=== PATIENT | male | born 1975 | race Caucasian/White ===

== ENCOUNTER 2017-03-31 20:24 | Inpatient (IN) | payer MEDICAID ==
[~2017-03-31] VITALS: Ht 177.8 cm; Wt 95.0 kg
[2017-04-01] MEDS ORDERED: ONDANSETRON 4 MG INJ IV STA (00:57)
[2017-04-01] MEDS ORDERED: morphine 4 MG/ML VIAL IV STA (00:57)
[2017-04-01] MEDS ORDERED: SOD CHLORIDE 0.9% 1,000 ML IV STA (00:57)
--- NOTE | 2017-04-01 00:57 | ERD ---
ER Documentation Chief Complaint Date/Time DATE: 04/01/17 TIME: 00:55 Chief Complaint RUQ pain since yesterday that worsens with deep breathing HPI right upper Quadrant pain worse with inspiration, , fever and diarrhea, denies n /v/ x 2 days ROS All systems reviewed and are negative except as per history of present illness. Physical Exam Vitals Vital Signs Date Time Temp Pulse Resp B/P Pulse Ox O2 Delivery O2 Flow Rate FiO2 03/31/17 20:43 100.0 95 20 116/74 97 Physical Exam Const: [] Head: Atraumatic Eyes: Normal Conjunctiva ENT: Normal External Ears, Nose and Mouth. Neck: Full range of motion..~ No meningismus. Resp: Clear to auscultation bilaterally Cardio: Regular rate and rhythm, no murmurs Abd: Soft, non tender, non distended. Normal bowel sounds Skin: No petechiae or rashes Back: No midline or flank tenderness Ext: No cyanosis, or edema Neur: Awake and alert Psych: Normal Mood and Affect Result Diagram: 04/01/1711404/01/17 011 Results 24 hrs Laboratory Tests Test 04/01/17 01:10 04/01/17 01:15 Urine Color URIEL Urine Clarity SLIGHTLY CLOUDY Urine pH 5.0 Urine Specific [place] 1.034 Urine Ketones TRACEmg/dL Urine Nitrite NEGATIVEmg/dL Urine Bilirubin 1+mg/dL Urine Urobilinogen 1+mg/dL Urine Leukocyte Esterase NEGATIVELeu/ul Urine Microscopic RBC 1/HPF Urine Microscopic WBC 3/HPF Urine Squamous Epithelial Cells FEW/HPF Urine Mucus MANY/HPF Urine Hemoglobin NEGATIVEmg/dL Urine Glucose NEGATIVEmg/dL Urine Total Protein 2+mg/dl White Blood Count 17.810^3/ul Red Blood Count 4.7110^6/ul Hemoglobin 14.6g/dl Hematocrit 42.4% Mean Corpuscular Volume 90.0fl Mean Corpuscular Hemoglobin 31.0pg Mean Corpuscular Hemoglobin Concent 34.4g/dl Red Cell Distribution Width 13.2% Platelet Count 45413^3/UL Mean Platelet Volume 10.3fl Neutrophils % 84.0% Lymphocytes % 8.4% Monocytes % 6.7% Eosinophils % 0.1% Basophils % 0.2% Nucleated Red Blood Cells % 0.0/100WBC Neutrophils # (Manual) 14.910^3/ul Lymphocytes # 1.510^3/ul Monocytes # 1.210^3/ul Eosinophils # 0.010^3/ul Basophils # 0.010^3/ul Nucleated Red Blood Cells # 0.010^3/ul Sodium Level 136mmol/L Potassium Level 3.6mmol/L Chloride Level 99mmol/L Carbon Dioxide Level 28mmol/L Anion Gap 13 Blood Urea Nitrogen 20mg/dl Creatinine 1.01mg/dl Glucose Level 113mg/dl Calcium Level 9.2mg/dl Total Bilirubin 1.9mg/dl Direct Bilirubin 0.00mg/dl Indirect Bilirubin 1.9mg/dl Aspartate Amino Transf (AST/SGOT) 90IU/L Alanine Aminotransferase (ALT/SGPT) 86IU/L Alkaline Phosphatase 77IU/L Total Protein 7.3g/dl Albumin 4.1g/dl Globulin 3.20g/dl Albumin/Globulin Ratio 1.28 Lipase 65U/L Current Medications Medications (Trade) Dose Ordered Sig/Juan David Route PRN Reason Start Time Stop Time Status Last Admin Dose Admin Sodium Chloride (NS) 1,000 ml @ 1,000 mls/hr Q1H STAT IV 04/01/17 00:57 04/01/17 01:56 DC 04/01/17 01:24 Morphine Sulfate (morphine) 4 mg ONCE STAT IV 04/01/17 00:57 04/01/17 01:01 DC 04/01/17 01:24 Ondansetron HCl (Zofran Inj) 4 mg ONCE STAT IV 04/01/17 00:57 04/01/17 01:01 DC 04/01/17 01:23 Pantoprazole (Protonix Iv) 40 mg ONCE ONCE IV 04/01/17 01:00 04/01/17 01:01 DC 04/01/17 01:24 Interpretation text CBC shows no evidence of hemorrhage WBCs elevated at 17.8. Chemistry shows no evidence of significant electrolyte abnormalities or renal insufficiency Liver function tests shows evidence of biliary and hepatic dysfunction Lipase shows no evidence of acute pancreatitis Procedures/MDM PROCEDURE: Abdominal ultrasound, limited. CLINICAL INDICATION: Abdominal pain. TECHNIQUE: Multiple real-time images were acquired of the patient's right upper abdomen utilizing a high resolution transducer. COMPARISON: None FINDINGS: The liver demonstrates increased echogenicity and size measuring 20.7 cm. There is no focal mass or intrahepatic biliary ductal dilatation. The portal vein is patent. The gallbladder is not distended. Multiple echogenic gallstones are identified. There is no pericholecystic fluid. There is mild gallbladder wall thickening measuring 4.3 mm. The common bile duct measures 3.9 mm in maximal dimension. The pancreas is obscured by overlying bowel gas. No free fluid is identified. The right kidney is normal size and echogenicity measuring 11.3 cm. There is no focal renal mass or echogenic calculus identified. There is no obstructive uropathy. IMPRESSION: Cholelithiasis with mild gallbladder wall thickening. Enlarged liver with fatty infiltration. Pancreas obscured by overlying bowel gas. Electronically viewed and signed by .Horacio Barrientos MD, on 04/01/2017 02:27 41-year-old male patient presents to emergency department today for evaluation of right upper quadrant pain. Pain has been symptomatic for 2 days with worse pain today. Patient reports pain as severe, denies history of cholecystitis, denies nausea vomiting reports diarrhea today. Patient eats a diet high in animal products. High in fat. Denies alcohol. Patient symptoms and physical exam are highly suspicious for cholecystitis. Diagnostic testing ordered, abnormal laboratory tests with elevated WBCs at 17.8. LFTs are elevated ' Alk phos is normal, lipase is normal. Urinalysis is negative for evidence of leukocytosis, microscopic hematuria, or nitrates. A bladder ultrasound ordered with radiology interpretation as cholelithiasis with mild gallbladder wall thickening. Enlarged liver with fatty infiltration. Pancreas obscured by overlying bowel and gas.. Patient's received 1 L of normal saline, 4 mg of IV morphine, 4 mg of IV Zofran, and 40 mg of IV Protonix. Patient reassessed reports pain has improved and that he feels overall better than when he came in. This case discussed with supervising physician Dr. Dawkins. Patient will be moved over to main emergency room, all care will be transferred to Dr. Dawkins this time. Departure Diagnosis: Primary Impression: Cholelithiasis Cholelithiasis location: gallbladder Cholecystitis presence: with cholecystitis Cholecystitis acuity: unspecified acuity Biliary obstruction: without biliary obstruction Qualified Code: K80.00 - Calculus of gallbladder with cholecystitis without biliary obstruction, unspecified cholecystitis acuity Condition: Stable WESTLEY BIRMING[place]AM Apr 01, 2017 00:57
[2017-04-01] MEDS ORDERED: PANTOPRAZOLE 40 MG INJ IV ONE (01:00)
[2017-04-01 01:46] LABS: BASOPHILS % 0.2 % (0.0-2.0); EOSINOPHILS % 0.1 % (0.0-7.0); HEMATOCRIT 42.4 % (42.0-52.0); HEMOGLOBIN 14.6 g/dl (14.0-18.0); LYMPHOCYTES # 1.5 10^3/ul (0.8-2.9); LYMPHOCYTES % 8.4 % (15.0-51.0); MEAN CORPUSCULAR HGB CONC 34.4 g/dl (32.0-37.0); MEAN PLATELET VOLUME 10.3 fl (7.4-10.4); MONOCYTE # 1.2 10^3/ul (0.3-0.9); MONOCYTES % 6.7 % (0.0-11.0); PLATELET COUNT 301 10^3/UL (140-415); RED BLOOD COUNT 4.71 10^6/ul (4.70-6.10); RED CELL DISTRIBUTION WIDTH 13.2 % (11.5-14.5); WHITE BLOOD COUNT 17.8 10^3/ul (4.8-10.8)
[2017-04-01 01:50] LABS: ADD UMIC YES; UR ASCORBIC ACID NEGATIVE (NEGATIVE); UR BILIRUBIN (Dip) 1+ mg/dL (NEGATIVE); UR BLOOD (Dip) NEGATIVE (NEGATIVE); UR CLARITY SLIGHTLY CLOUDY (CLEAR); UR COLOR AMBER (YELLOW); UR GLUCOSE (Dip) NEGATIVE (NEGATIVE); UR KETONES (Dip) TRACE mg/dL (NEGATIVE); UR LEUKOCYTE ESTERASE (Dip) NEGATIVE Leu/ul (NEGATIVE); UR MUCUS MANY /HPF (NONE SEEN); UR NITRITE (Dip) NEGATIVE (NEGATIVE); UR RBC 1 /HPF (0-5); UR SPECIFIC GRAVITY (Dip) 1.034 (1.003-1.030); UR SQUAMOUS EPITHELIAL CELL FEW /HPF (FEW); UR TOTAL PROTEIN (Dip) 2+ mg/dl (NEGATIVE); UR UROBILINOGEN (Dip) 1+ mg/dL (NEGATIVE)
[2017-04-01 02:01] LABS: ALBUMIN 4.1 g/dl (3.3-4.9); ALBUMIN/GLOBULIN RATIO 1.28; BILIRUBIN,INDIRECT 1.9 mg/dl (0-1.1); BILIRUBIN,TOTAL 1.9 mg/dl (0.2-1.3); CALCIUM 9.2 mg/dl (8.4-10.2); CREATININE 1.01 mg/dl (0.61-1.24); POTASSIUM 3.6 mmol/L (3.5-5.1); TOTAL PROTEIN 7.3 g/dl (6.1-8.1)
--- NOTE | 2017-04-01 02:27 | RADRPT ---
PROCEDURE: Abdominal ultrasound, limited. CLINICAL INDICATION: Abdominal pain. TECHNIQUE: Multiple real-time images were acquired of the patient's right upper abdomen utilizing a high resolution transducer. COMPARISON: None FINDINGS: The liver demonstrates increased echogenicity and size measuring 20.7 cm. There is no focal mass or intrahepatic biliary ductal dilatation. The portal vein is patent. The gallbladder is not distend ed. Multiple echogenic gallstones are identified. There is no pericholecystic fluid. There is mild gallbladder wall thickening measuring 4.3 mm. The common bile duct measures 3.9 mm in maximal dime nsion. The pancreas is obscured by overlying bowel gas. No free fluid is identified. The right kidney is normal size and echogenicity measuring 11.3 cm. There is no focal renal mass or echogenic calculus identified. There is no obstructive uropathy. IMPRESSION: Cholelithiasis with mild gallbladder wall thickening. Enlarged liver with fatty infiltration. Pancreas obscured by overlying bowel gas. .Horacio Barrientos MD, Date Time Electronically viewed and signed by .Horacio Barrientos MD, MD on 04/01/2017 02:27 .T/
[2017-04-01] MEDS ORDERED: ACET-141 PO (05:22)
[2017-04-01] MEDS ORDERED: SOD CHLORIDE 0.9% 1,000 ML IV SCH (06:27)
[2017-04-01] MEDS ORDERED: BISACODYL (EC) 5 MG TAB PO PRN (06:30)
[2017-04-01] MEDS ORDERED: DOCUSATE SODIUM 100 MG CAP PO PRN (06:30)
[2017-04-01] MEDS ORDERED: ONDANSETRON 4 MG INJ IV PRN (06:30)
[2017-04-01] MEDS ORDERED: NACL 0.9% 3 ML SYG IV SCH (06:30)
--- NOTE | 2017-04-01 06:32 | HP ---
Date/Time of Note Date/Time of Note DATE: 04/01/17 TIME: 06:24 Assessment/Plan VTE Prophylaxis VTE Prophylaxis Intervention: SCD's Assessment/Plan Chief Complaint/Hosp Course This is a 41-year-old male being admitted to the [facility] floor for: #1 symptomatic cholelithiasis: There is cholelithiasis and gallbladder wall thickening identified on the gallbladder ultrasound. There is no signs of acute cholecystitis. Patient denies any fevers. There is an elevated white blood cell count of 17 which could be reactive however we will continue to monitor any signs of infection. General surgery has been consulted by the ED physician. Keep patient n.p.o. IV fluid hydration. IV pain control. Repeat a CBC in the afternoon to assess the white count. #2 hypertension: Patient does not currently take any medications for high blood pressure. Will continue monitor blood pressure and start him on the medication as indicated. #3 DVT and GI prophylaxis: SCDs, acid elvin Further treatment strategy will be implemented as per the clinical course Problems: HPI/ROS Admit Date/Time Admit Date/Time Hx of Present Illness Complaint: Right upper quadrant normal pain This is a 41-year-old male coming in coming in today complaining of right upper quadrant abdominal pain 1 day. Patient states that on Thursday after eating sausages and red meat he started experiencing upper quadrant pain. States pain was 10 out of 10 run nonradiating. Denies any fevers. Does state he has some nausea. Denies any shortness of breath or chest pain. Allergies: NKDA Medications: none ROS Const: Negative for fever, chills, weight gain or weight loss, fatigue, or diaphoresis Eyes : No pain discharge or redness or change in visual acuity ENT: No pain, sore throat, congestion, congestion, dysphagia or discharge Respiratory: No shortness of breath, cough, sputum, wheezing, or pleuritic pain Cardiovascular: No chest pain, palpitation, PND, or edema GI : As per HPI Genitourinary: No dysuria, hematuria, flank pain , discharge or CVA tenderness Musculoskeletal: No joint pain, back pain, neck pain, restricted range of motion in neck or joints Skin: No rash, bruising or hives Neuro: No headache, dizziness, syncope, seizure, focal weakness Endocrine: No polyuria, polydipsia, temperature intolerance Psych: No hallucination, depression, anxiety or suicidal ideation PMH/Family/Social Past Medical History Hypertension Past Surgical History Past Surgical Hx: no surgical history Family History Significant Family History: no pertinent family hx Social History Alcohol Use: none Smoking Status: Current every day smoker Drug Use: none (3 cigarettes a day) Exam/Review of Systems Vital Signs Vitals Vital Signs Date Time Temp Pulse Resp B/P Pulse Ox O2 Delivery O2 Flow Rate FiO2 04/01/17 05:39 83 17 119/86 98 Room Air 03/31/17 20:43 100.0 Exam Exam General: Patient is well-developed well-nourished The patient is alert oriented -3 lying comfortably in bed. HEENT: Atraumatic, normocephalic. The pupils are equal, round and reactive. Extraocular motor are intact Neck: Supple with full range of motion. No rigidity or meningismus Chest: Nontender Lungs: Clear to auscultation bilaterally no crackles rales or wheezing Heart: Normal S1-S2, Regular rhythm and rate. No murmur, S3, or S4 Abdomen: Right upper quadrant tenderness to palpation, nondistended, normal bowel sounds Extremities: Normal to inspection, no edema no cyanosis Neurologic: Normal mental status, speech normal, cranial nerves II through XII are intact, motor and sensory are intact, no focal weakness Additional Comments PROCEDURE: Abdominal ultrasound, limited. CLINICAL INDICATION: Abdominal pain. TECHNIQUE: Multiple real-time images were acquired of the patient's right upper abdomen utilizing a high resolution transducer. COMPARISON: None FINDINGS: The liver demonstrates increased echogenicity and size measuring 20.7 cm. There is no focal mass or intrahepatic biliary ductal dilatation. The portal vein is patent. The gallbladder is not distended. Multiple echogenic gallstones are identified. There is no pericholecystic fluid. There is mild gallbladder wall thickening measuring 4.3 mm. The common bile duct measures 3.9 mm in maximal dimension. The pancreas is obscured by overlying bowel gas. No free fluid is identified. The right kidney is normal size and echogenicity measuring 11.3 cm. There is no focal renal mass or echogenic calculus identified. There is no obstructive uropathy. IMPRESSION: Cholelithiasis with mild gallbladder wall thickening. Enlarged liver with fatty infiltration. Pancreas obscured by overlying bowel gas. .Horacio Barrientos MD, MD Date Time Electronically viewed and signed by .Horacio Barrientos MD, MD on 04/01/2017 02:27 .T/ Labs Result Diagram: 04/01/17 0115 04/01/17 0115 MICA FIGUEREDO Apr 01, 2017 06:32
[2017-04-01] MEDS ORDERED: PIPER-TAZO 3.375 GM IV (PMX) 100 ML IVPB ONE (07:00)
[2017-04-01 08:16] VITALS: TEMP 98.9
[2017-04-01 08:25] VITALS: Ht 177.8 cm; Wt 95.0 kg
[2017-04-01] MEDS: morphine 2 MG INJ IV PRN ×2 (08:47→20:24)
[2017-04-01] MEDS: FAMOTIDINE 20 MG TAB PO SCH ×2 (08:47→20:24)
[2017-04-01 09:00] VITALS: BP 132/83; PULSE 83; RESP 16
[2017-04-01 11:30] LABS: CHOL/HDL RATIO 2.8 RATIO
[2017-04-01 11:40] LABS: T3 UPTAKE 38.3 % (23.5-40.5)
[2017-04-01 12:34] LABS: CALCIUM 8.6 mg/dl (8.4-10.2); CREATININE 0.88 mg/dl (0.61-1.24); POTASSIUM 3.8 mmol/L (3.5-5.1)
[2017-04-01 14:34] VITALS: BP 127/81; RESP 16
[2017-04-01] MEDS: PIPER-TAZO 3.375 GM IV (PMX) 100 ML IVPB SCH ×2 (14:41→21:45)
[2017-04-01] MEDS: DEXTROSE 5%-0.45% NACL 1,000 ML IV SCH (14:41)
[2017-04-01 21:00] VITALS: BP 131/86; RESP 19
[2017-04-02 02:00] VITALS: BP 125/79; RESP 18
[2017-04-02] MEDS: ACETAMINOPHEN 325 MG TAB PO PRN ×2 (02:56→16:37)
[2017-04-02] MEDS: DEXTROSE 5%-0.45% NACL 1,000 ML IV SCH ×2 (03:01)
[2017-04-02] MEDS: PIPER-TAZO 3.375 GM IV (PMX) 100 ML IVPB SCH ×3 (05:26→22:17)
[2017-04-02 05:32] LABS: BASOPHILS % 0.2 % (0.0-2.0); EOSINOPHILS # 0.2 10^3/ul (0.0-0.5); EOSINOPHILS % 1.6 % (0.0-7.0); HEMATOCRIT 38.4 % (42.0-52.0); LYMPHOCYTES # 1.5 10^3/ul (0.8-2.9); LYMPHOCYTES % 13.9 % (15.0-51.0); MEAN CORPUSCULAR HEMOGLOBIN 31.2 pg (29.0-33.0); MEAN CORPUSCULAR HGB CONC 33.9 g/dl (32.0-37.0); MEAN CORPUSCULAR VOLUME 92.1 fl (82.0-101.0); MEAN PLATELET VOLUME 10.3 fl (7.4-10.4); MONOCYTE # 0.9 10^3/ul (0.3-0.9); MONOCYTES % 7.7 % (0.0-11.0); NEUTROPHILS % 76.2 % (39.0-77.0); PLATELET COUNT 255 10^3/UL (140-415); RED BLOOD COUNT 4.17 10^6/ul (4.70-6.10); RED CELL DISTRIBUTION WIDTH 13.3 % (11.5-14.5)
[2017-04-02 05:51] LABS: MAGNESIUM 2.4 mg/dl (1.7-2.5); PHOSPHORUS 2.4 mg/dl (2.5-4.9)
[2017-04-02 05:55] LABS: ALBUMIN 3.5 g/dl (3.3-4.9); ALBUMIN/GLOBULIN RATIO 1.06; BILIRUBIN,INDIRECT 1.8 mg/dl (0-1.1); BILIRUBIN,TOTAL 1.8 mg/dl (0.2-1.3); CREATININE 0.94 mg/dl (0.61-1.24); POTASSIUM 4.5 mmol/L (3.5-5.1); TOTAL PROTEIN 6.8 g/dl (6.1-8.1)
[2017-04-02 08:01] VITALS: BP 107/71; RESP 18
[2017-04-02] MEDS: FAMOTIDINE 20 MG TAB PO SCH (08:11)
[2017-04-02] MEDS: SOD CHLORIDE 0.9% 1,000 ML IV SCH ×3 (11:35→22:17)
--- NOTE | 2017-04-02 11:49 | PN ---
Date/Time of Note Date/Time of Note DATE: 04/02/17 TIME: 11:45 Assessment/Plan VTE Prophylaxis VTE Prophylaxis Intervention: ambulation Lines/Catheters IV Catheter Type (from [facility]): Peripheral IV Urinary Cath still in place: No Assessment/Plan Chief Complaint/Hosp Course 1. Symptomatic cholelithiasis. Continue IV hydration and analgesics. Continue empiric antibiotics. Awaiting surgical evaluation. 2. Transaminitis. Most probably secondary to #1. 3. Fluids, electrolytes, and nutrition. NPO. IV hydration. 4. DVT prophylaxis. Ambulation. 5. Plan. Continue pain control. Continue empiric antibiotics. Await surgical evaluation. Case discussed with Dr. Diez. Problems: Subjective 24 Hr Interval Summary Free Text/Dictation Denies any nausea or vomiting. Complains of minimal abdominal pain. Remains afebrile. Exam/Review of Systems Vital Signs Vitals Vital Signs Date Time Temp Pulse Resp B/P Pulse Ox O2 Delivery O2 Flow Rate FiO2 04/02/17 08:01 97.5 75 18 107/71 96 04/01/17 09:00 Room Air Intake and Output 04/01/17 04/01/17 04/02/17 15:00 23:00 07:00 Intake Total 1100 ml 550 ml 1350 ml Output Total 800 ml 1800 ml Balance 1100 ml -250 ml -450 ml Exam General: Adequately build 41 year-old male lying in bed in no apparent distress. HEENT: Normocephalic, atraumatic. Eyes: Anicteric sclerae, conjunctivae clear. ENT: Nasal septum midline, oral mucosa moist. Neck supple, no JVD noticed. Respiratory: Bilaterally clear breath sounds. No use of accessory muscles of respiration. No adventitious breath sounds. Cardiovascular: S1, S2 heard. No murmurs or gallops. Abdomen: Soft and nondistended. Bowel sounds positive in all 4 quadrants. Minimal RUQ tenderness. Genitourinary: Deferred. Extremities: No cyanosis, no clubbing, no edema. Peripheral pulses palpable. Neurologic: Cranial nerves II through XII grossly intact. The patient is awake, alert, and oriented. Skin: Normal skin turgor. No skin rashes. Results Result Diagram: 04/02/17 0429 04/02/17 0429 Results 24 hrs Laboratory Tests Test 04/01/17 11:47 04/02/17 04:29 Sodium Level 137 141 Potassium Level 3.8 4.5 Chloride Level 104 105 Carbon Dioxide Level 28 29 Anion Gap 9 12 Blood Urea Nitrogen 18 14 Creatinine 0.88 0.94 Glucose Level 95 107 Calcium Level 8.6 9.0 White Blood Count 11.0 #H Red Blood Count 4.17 L Hemoglobin 13.0 L Hematocrit 38.4 L Mean Corpuscular Volume 92.1 Mean Corpuscular Hemoglobin 31.2 Mean Corpuscular Hemoglobin Concent 33.9 Red Cell Distribution Width 13.3 Platelet Count 255 Mean Platelet Volume 10.3 Neutrophils % 76.2 Lymphocytes % 13.9 L Monocytes % 7.7 Eosinophils % 1.6 Basophils % 0.2 Nucleated Red Blood Cells % 0.0 Neutrophils # (Manual) 8.4 H Lymphocytes # 1.5 Monocytes # 0.9 Eosinophils # 0.2 Basophils # 0.0 Nucleated Red Blood Cells # 0.0 Hemoglobin A1c 5.3 Phosphorus Level 2.4 L Magnesium Level 2.4 Total Bilirubin 1.8 H Direct Bilirubin 0.00 Indirect Bilirubin 1.8 H Aspartate Amino Transf (AST/SGOT) 39 # Alanine Aminotransferase (ALT/SGPT) 62 Alkaline Phosphatase 88 Total Protein 6.8 Albumin 3.5 Globulin 3.30 H Albumin/Globulin Ratio 1.06 Medications Medications Current Medications Ondansetron HCl (Zofran Inj) 4 mg Q6H PRN IV NAUSEA AND/OR VOMITING; Start 04/01 at 06:30 Acetaminophen (Tylenol Tab) 650 mg Q6H PRN PO PAIN LEVEL 1-3 OR FEVER Last administered on 04/02/17 02:56; Admin Dose 650 MG; Start 04/01/17 at 06:30 Morphine Sulfate (morphine) 2 mg Q4H PRN IV SEVERE PAIN LEVEL 7-10 Last administered on 04/01/17 20:24; Admin Dose 2 MG; Start 04/01/17 at 06:30 Docusate Sodium (Colace) 100 mg Q12H PRN PO CONSTIPATION; Start 04/01/17 at 06: 30 Bisacodyl 5 mg 5 mg DAILY PRN PO CONSTIPATION; Start 04/01/17 at 06:30 Piperacillin Sod/ Tazobactam Sod 100 ml @ 200 mls/hr Q8 IVPB Last administered on 04/02/17 05:26; Admin Dose 200 MLS/HR; Start 04/01/17 at 14:00 Sodium Chloride (NS) 1,000 ml @ 125 mls/hr Q8H IV Last administered on t 11:35; Admin Dose 125 MLS/HR; Start 04/02/17 at 09:30 RENETTA [employer] Apr 02, 2017 11:49
[2017-04-02 14:49] VITALS: BP 144/91; RESP 16
--- NOTE | 2017-04-02 16:10 | CONS ---
Date/Time of Note Date/Time of Note DATE: 04/02/17 TIME: 16:09 Assessment/Plan Assessment/Plan Additional Assessment/Plan [facility] IN[facility]IENT CONSULTATION NOTE DATE OF SERVICE: 04/02/2017 PLACE OF SERVICE: [facility], fourth floor ASSESSMENT AND PLAN: A very-pleasant 41-year-old gentleman with comorbidity of BMI 30.1 and hypertension presenting with symptomatic cholelithiasis and possible early cholecystitis. The patient can benefit from laparoscopic cholecystectomy and we will plan on doing so in the next available elective time slot. Because his pain is a bit atypical and located in the right flank region consider right upper quadrant, I would like to study the patient a bit better with a HIDA scan and a CT scan. We tentatively have the patient on the schedule for laparoscopic cholecystectomy tomorrow. Explained to patient and his and answered all questions. Patient and family appeared to understand and agreed with the plans. With above assessment, I've recommended the followin. HIDA scan 2. CT scan of abdomen and pelvis with IV and oral contrast 3. N.p.o. after midnight 4. To the operating room for above in the next elective time slot Thank you very much for having me involved in the care of this very pleasant patient and wonderful family. If you have any questions, please feel free to contact me at [phone]. Nature of presenting problem: Moderate severity Please note that, given the multiple number of diagnoses or management options, the moderate amount and/or complexity of data needed to be reviewed, and moderate risk of complications and/or morbidity or mortality, this qualifies as moderate complexity type of decision-making. Disclaimer: Inadvertent spelling and grammatical errors are likely due to EHR/ dictation software use and do not reflect on the quality of delivered patient care. Also, please note that the electronic time recorded on this node does not necessarily reflect the actual time of the visit. Updated clinical summary: A very-pleasant 41-year-old gentleman with comorbidity of BMI 30.1 and hypertension, admitted through emergency department at [facility] on 04/01/2017 with symptomatic cholelithiasis and possible early cholecystitis. Comorbidities: 1. BMI 30.1 2. Cholelithiasis with mild gallbladder wall thickening ([facility] right upper quadrant ultrasound 04/01/2017) 3. Enlarged liver with fatty infiltration ([facility] right upper quadrant ultrasound 04/01/2017) CONSULTATION REQUESTED BY: Olayinka Thorpe NP HISTORY OF PRESENT ILLNESS: The patient is a very pleasant 41-year-old gentleman admitted through the emergency department for 2 day history of right upper quadrant abdominal pain that was severe in nature and not associated with significant nausea or vomiting. There was also no diarrhea noted. His white blood cell count was 17.8. No evidence of pancreatitis. No evidence of urinary tract infection. His total bilirubin on admission was 1.9 and AST was 90, ALT 86 with normal alkaline phosphatase at 77. Albumin was 4.1. Platelets were 301. I was contacted on hospital day #2 to consult with the patient. His history of abdominal pain with ingestion of greasy foods for a number of months. Patient describes the pain as a nonradiating 7-10 out of 10 at its worst pain without significant alleviating factors. No prior visits to the emergency department or hospitals in the past for this reason. No other major complaints during my visit. ALLERGIES: NO KNOWN DRUG ALLERGIES MEDICATIONS Documented in the electronic records and reviewed by me. Please see the electronic records for details, as well as details for inpatient medications which were also reviewed by me. SOCIAL HISTORY: The patient lives with family. + Tob (3 cigarettes a day); - ETOH; - IVDU FAMILY HISTORY: There are no significant medical, surgical or oncologic issues in the family as reported by the patient or reflected in the chart. REVIEW OF SYSTEMS: Other than mentioned above, there were no other pertinent positives or pertinent negatives in an otherwise complete 14 point review of systems. PHYSICAL EXAMINATION GENERAL: The patient appears to be a very pleasant gentleman of descent lying in bed, appearing stated age, and otherwise in no acute distress. BMI: 30 VITAL SIGNS: AVSS (please also see auto important data if available as well as the electronic records) HEENT: Normocephalic and atraumatic. Extraocular muscles and hearing are grossly intact bilaterally and symmetrically. Sclerae are nonicteric. Oral cavity is clear; oral mucosa appear to be pink and moist. Dentition: fair. NECK: Supple. There is no lymphadenopathy or JVD. There is no submental, submandibular or supraclavicular lymphadenopathy. CHEST: Rises symmetrically with each breath; patient is breathing comfortably. There are no audible wheezes, rales or rhonchi on the gross exam. HEART: Pulse is regular and palpable on the right wrist. Capillary refill is normal. Carotid pulses are palpable bilaterally and symmetrically in the neck. EXTREMITIES: Lower extremities contain no pitting edema around the ankles bilaterally and symmetrically. ABDOMEN: Abdomen is soft, nontender with minor tenderness in the right flank region and not so much in the right upper quadrant and nondistended. No evidence of ascites, organomegaly, caput medusae, engorged subcutaneous veins, or other abnormalities. There are no peritoneal signs or guarding. SKIN: Appears to be pink and feels warm to touch. NEUROLOGIC: Awake, alert, and follows commands appropriately. LABORATORY DATA: See below IMAGING: See electronic chart. Please note that I've personally reviewed all pertinent available images and I agree in general with their overall reported findings. Consultation Date/Type/Reason Admit Date/Time Past Surgical History Past Surgical Hx: no surgical history Social History Alcohol Use: none Smoking Status: Current every day smoker Drug Use: none (3 cigarettes a day) Exam/Review of Systems Vital Signs Vitals Vital Signs Date Time Temp Pulse Resp B/P Pulse Ox O2 Delivery O2 Flow Rate FiO2 04/02/17 14:49 98.1 75 16 144/91 98 04/01/17 09:00 Room Air Intake and Output 04/01/17 04/01/17 04/02/17 15:00 23:00 07:00 Intake Total 1100 ml 550 ml 1350 ml Output Total 800 ml 1800 ml Balance 1100 ml -250 ml -450 ml Results Result Diagram: 04/02/17 0429 04/02/17 0429 Results 24 hrs Laboratory Tests Test 04/02/17 04:29 White Blood Count 11.0 #H Red Blood Count 4.17 L Hemoglobin 13.0 L Hematocrit 38.4 L Mean Corpuscular Volume 92.1 Mean Corpuscular Hemoglobin 31.2 Mean Corpuscular Hemoglobin Concent 33.9 Red Cell Distribution Width 13.3 Platelet Count 255 Mean Platelet Volume 10.3 Neutrophils % 76.2 Lymphocytes % 13.9 L Monocytes % 7.7 Eosinophils % 1.6 Basophils % 0.2 Nucleated Red Blood Cells % 0.0 Neutrophils # (Manual) 8.4 H Lymphocytes # 1.5 Monocytes # 0.9 Eosinophils # 0.2 Basophils # 0.0 Nucleated Red Blood Cells # 0.0 Sodium Level 141 Potassium Level 4.5 Chloride Level 105 Carbon Dioxide Level 29 Anion Gap 12 Blood Urea Nitrogen 14 Creatinine 0.94 Glucose Level 107 Hemoglobin A1c 5.3 Calcium Level 9.0 Phosphorus Level 2.4 L Magnesium Level 2.4 Total Bilirubin 1.8 H Direct Bilirubin 0.00 Indirect Bilirubin 1.8 H Aspartate Amino Transf (AST/SGOT) 39 # Alanine Aminotransferase (ALT/SGPT) 62 Alkaline Phosphatase 88 Total Protein 6.8 Albumin 3.5 Globulin 3.30 H Albumin/Globulin Ratio 1.06 Medications Medications Current Medications Ondansetron HCl (Zofran Inj) 4 mg Q6H PRN IV NAUSEA AND/OR VOMITING; Start 04/01 at 06:30 Acetaminophen (Tylenol Tab) 650 mg Q6H PRN PO PAIN LEVEL 1-3 OR FEVER Last administered on 04/02/17 02:56; Admin Dose 650 MG; Start 04/01/17 at 06:30 Morphine Sulfate (morphine) 2 mg Q4H PRN IV SEVERE PAIN LEVEL 7-10 Last administered on 04/01/17 20:24; Admin Dose 2 MG; Start 04/01/17 at 06:30 Docusate Sodium (Colace) 100 mg Q12H PRN PO CONSTIPATION; Start 04/01/17 at 06: 30 Bisacodyl 5 mg 5 mg DAILY PRN PO CONSTIPATION; Start 04/01/17 at 06:30 Piperacillin Sod/ Tazobactam Sod 100 ml @ 200 mls/hr Q8 IVPB Last administered on 04/02/17 15:12; Admin Dose 200 MLS/HR; Start 04/01/17 at 14:00 Sodium Chloride (NS) 1,000 ml @ 125 mls/hr Q8H IV Last administered on 11:35; Admin Dose 125 MLS/HR; Start 04/02/17 at 09:30 SANDHYA REED M.D. Apr 02, 2017 16:10
[2017-04-02] MEDS ORDERED: BARIUM SULF 2% 450 ML BTL (BERRY SMOOTHIE) PO SCH (17:30)
[2017-04-02 19:20] VITALS: BP 143/88; RESP 18
[2017-04-02] MEDS ORDERED: IOHEXOL 300MG/ML 150 ML BTL PO SCH (21:30)
[2017-04-02] MEDS ORDERED: IOHEXOL 14.3 MG(I)/ML (ADULT) BTL PO ONE (22:00)
[2017-04-03] VITALS (23 sets, daily range): BP systolic 121–164; BP diastolic 71–97; PULSE 78–84; RESP 17–20
[2017-04-03] MEDS ORDERED: IOHEXOL 300MG/ML 150 ML BTL ONE (02:01)
[2017-04-03] MEDS ORDERED: SOD CHLORIDE 0.9% 100 ML ONE (02:01)
--- NOTE | 2017-04-03 03:48 | RADRPT ---
PROCEDURE: CT Abdomen with and without contrast. CLINICAL INDICATION: Abdominal pain. TECHNIQUE: CT scan of the abdomen and pelvis with contrast was performed on a multi-detector high -resolution CT scanner. The patient was scanned before and after the uncomplicated administration o f 100 cc of Omnipaque 300 intravenous contrast. Coronal and sagittal reformatted images were obtain ed from the axial source images. Images were reviewed on a high-resolution PACS workstation. One or more of the following dose reduction techniques were used: - Automated exposure control. - Adjustment of the mA and/or kV according to patient size. - Use of iterative reconstruction technique. Exam CTD/vol = 16.50 mGy. Total exam DLP = 2369.47 mGy-cm. COMPARISON: None. FINDINGS: Evaluation of the lung bases demonstrates bibasilar atelectasis and right lower lobe consolidation. There is a trace right-sided pleural effusion. Abdomen: The liver is normal in size. There is no focal mass or dilatation of the biliary tree. T he gallbladder is distended and demonstrates moderate diffuse wall thickening with mild adjacent str anding. The spleen, pancreas and bilateral adrenal glands are within normal limits. Bilateral kidn eys are normal in size with symmetric enhancement. There is no radiopaque renal or ureteral calculu s identified. There is no focal mass, hydronephrosis or hydroureter. There is no retroperitoneal a denopathy. The abdominal aorta is of normal caliber. Oral contrast reaches the rectum. There is no bowel obstruction or free air. A normal appendix is identified. There is no diverticulosis or diverticulitis. There is no ascites. Pelvis: The bladder demonstrates mild wall thickening. The prostate and seminal vesicles are withi n normal limits. There is no significant pelvic adenopathy or free fluid. Evaluation of the osseous structures demonstrates no suspicious lytic or blastic lesion. IMPRESSION: Distended gallbladder with moderate diffuse wall thickening suggestive of cholecystitis. Right lower lobe atelectasis/consolidation and trace pleural effusion. Mild left basilar atelectasis. Mild bladder wall thickening could suggest cystitis. Clinical correlation is needed. .Horacio Barrientos MD, MD Date Time Electronically viewed and signed by .Horacio Barrientos MD, MD on 04/03/2017 03:48 .T/
[2017-04-03] MEDS: PIPER-TAZO 3.375 GM IV (PMX) 100 ML IVPB SCH ×3 (05:56→22:26)
[2017-04-03 06:30] LABS: BASOPHILS % 0.5 % (0.0-2.0); EOSINOPHILS # 0.3 10^3/ul (0.0-0.5); EOSINOPHILS % 2.9 % (0.0-7.0); HEMATOCRIT 37.2 % (42.0-52.0); HEMOGLOBIN 12.6 g/dl (14.0-18.0); LYMPHOCYTES # 1.6 10^3/ul (0.8-2.9); LYMPHOCYTES % 18.6 % (15.0-51.0); MEAN CORPUSCULAR HEMOGLOBIN 30.7 pg (29.0-33.0); MEAN CORPUSCULAR HGB CONC 33.9 g/dl (32.0-37.0); MEAN CORPUSCULAR VOLUME 90.5 fl (82.0-101.0); MEAN PLATELET VOLUME 10.5 fl (7.4-10.4); MONOCYTE # 0.6 10^3/ul (0.3-0.9); NEUTROPHILS % 70.8 % (39.0-77.0); PLATELET COUNT 272 10^3/UL (140-415); RED BLOOD COUNT 4.11 10^6/ul (4.70-6.10); RED CELL DISTRIBUTION WIDTH 13.1 % (11.5-14.5); WHITE BLOOD COUNT 8.8 10^3/ul (4.8-10.8)
[2017-04-03] MEDS ORDERED: ROCURONIUM 50 MG INJ ONE ×2 (07:00→10:44)
[2017-04-03 07:12] LABS: MAGNESIUM 2.4 mg/dl (1.7-2.5)
[2017-04-03 07:20] LABS: ALBUMIN 3.4 g/dl (3.3-4.9); BILIRUBIN,INDIRECT 1.2 mg/dl (0-1.1); BILIRUBIN,TOTAL 1.2 mg/dl (0.2-1.3); CALCIUM 8.8 mg/dl (8.4-10.2); CREATININE 0.83 mg/dl (0.61-1.24); TOTAL PROTEIN 6.8 g/dl (6.1-8.1)
[2017-04-03] MEDS ORDERED: BUPIVACAINE 0.5%/EPI (SDV) 10 ML INJ ONE (09:58)
--- NOTE | 2017-04-03 10:35 | HPN ---
Date/Time of Note Date/Time of Note DATE: 04/03/17 TIME: 10:35 Interval H&P Admission Note Pt. seen H&P reviewed: No system changes Pt. seen H&P reviewed. No system changes (I attest that I have seen and examined the patient and reviewed the operation in detail, as well as its risks , benefits and alternatives of the operation). I attest that I have seen and examined the patient and reviewed in detail the operation, and its associated risks, benefits and alternative. I have answered all the patient's questions to the best of my ability and the patient wishes to proceed. Please refer to rest of electronic medical record for additional updates. SANDHYA REED M.D. Apr 03, 2017 10:35
[2017-04-03] MEDS ORDERED: GLYCOPYRROLATE 0.4 MG INJ ONE (10:44)
[2017-04-03] MEDS ORDERED: FENTAnyl 50 MCG/ML VIAL ONE ×2 (10:44→12:25)
[2017-04-03] MEDS ORDERED: CEFAZOLIN 1 GM INJ ONE (10:44)
[2017-04-03] MEDS ORDERED: NEOSTIGMINE 3 MG/3 ML SYRINGE ONE (10:44)
[2017-04-03] MEDS ORDERED: PROPOFOL 20 ML ONE (10:44)
[2017-04-03] MEDS ORDERED: ONDANSETRON 4 MG INJ ONE (10:45)
[2017-04-03] MEDS ORDERED: DEXAMETHASONE 4 MG/ML 1 ML INJ ONE (10:45)
[2017-04-03] MEDS ORDERED: MIDAZOLAM 1 MG/ML 2 ML INJ ONE (10:45)
[2017-04-03] MEDS ORDERED: MIDAZOLAM 1 MG/ML 2 ML INJ IV PRN (11:30)
[2017-04-03] MEDS ORDERED: OXYCODONE/ACETAMINOPHEN (5/325) TAB PO PRN ×2 (11:30)
[2017-04-03] MEDS ORDERED: FENTAnyl 50 MCG/ML VIAL IV PRN ×3 (11:30)
[2017-04-03] MEDS ORDERED: hydrALAzine 20 MG INJ IV PRN (11:30)
[2017-04-03] MEDS ORDERED: DIPHENHYDRAMINE 50 MG INJ IV PRN (11:30)
[2017-04-03] MEDS ORDERED: ONDANSETRON 4 MG INJ IV PRN (11:30)
[2017-04-03] MEDS ORDERED: EPHEDrine SULFATE 50 MG/5 ML SYG IV PRN (11:30)
[2017-04-03] MEDS ORDERED: ALBUTEROL 0.083% (NEB) 2.5 MG/3 ML AMP HHN PRN (11:30)
[2017-04-03] MEDS ORDERED: IPRATROPIUM (NEB) 0.5 MG/2.5 ML AMP HHN PRN (11:30)
[2017-04-03] MEDS ORDERED: HYDROmorphONE (0.2 MG/ML) 10ML SYG IV PRN ×3 (11:30)
[2017-04-03] MEDS ORDERED: MEPERIDINE 25 MG INJ IV PRN (11:30)
[2017-04-03] MEDS ORDERED: TRIMETHOBENZAMIDE 100 MG/ML VIAL IM PRN (11:30)
[2017-04-03] MEDS ORDERED: LABETALOL HCL 20MG INJ IV PRN (11:30)
[2017-04-03] MEDS ORDERED: SUGAMMADEX SODIUM 200 MG/2 ML VIAL IV ONE (12:40)
[2017-04-03] MEDS ORDERED: KETOROLAC 30 MG INJ ONE (12:42)
[2017-04-03] MEDS ORDERED: METOCLOPRAMIDE 10 MG INJ ONE (12:55)
--- NOTE | 2017-04-03 13:48 | OPR ---
Date/Time of Note Date/Time of Note DATE: 04/03/17 TIME: 13:47 Operative Report Operative\Procedure Findings [facility] IN[facility]IENT [facility]AT[facility] PLACE OF SERVICE: [facility] DATE OF SURGERY: 04/03/2017 PREOPERATIVE DIAGNOSIS: 1. Acute cholecystitis 2. Cholelithiasis with mild gallbladder wall thickening ([facility] right upper quadrant ultrasound 04/01/2017) 3. Enlarged liver with fatty infiltration ([facility] right [facility] quadrant ultrasound 04/01/2017) 4. BMI 30.1 POSTOPERATIVE DIAGNOSIS: 1. Severe acute on chronic cholecystitis with gallbladder hydrops 2. Cholelithiasis with mild gallbladder wall thickening ([facility] right upper quadrant ultrasound 04/01/2017) 3. Enlarged liver with fatty infiltration ([facility] quadrant ultrasound 04/01/2017) 4. BMI 30.1 OPERATION: 1. Laparoscopic cholecystectomy (modifier 22) SURGEON: Sandhya Reed M.D. RECREATIONAL VEHICLE REPAIRER: None ANESTHESIA: General endotracheal tube anesthesia ANESTHESIOLOGIST: Taniya Falk M.D. BRIEF SUMMARY: An otherwise uncomplicated laparoscopic cholecystectomy was performed with findings of severe acute on chronic cholecystitis with gallbladder hydrops. Updated clinical summary: A very-pleasant 41-year-old gentleman with comorbidity of BMI 30.1 and hypertension, admitted through emergency department at [facility] on 04/01/2017 with symptomatic cholelithiasis and possible early cholecystitis. Comorbidities: 1. BMI 30.1 2. Cholelithiasis with mild gallbladder wall thickening ([facility] right upper quadrant ultrasound 04/01/2017) 3. Enlarged liver with fatty infiltration ([facility] right upper quadrant ultrasound 04/01/2017) BRIEF HISTORY: The patient is a very pleasant 41-year-old gentleman with comorbidity of BMI 30.1 as well as hypertension, who presented with a picture consistent with acute cholecystitis. Note that I had ordered a CT scan which demonstrated significant thickening of the wall of the gallbladder and for this reason, I canceled the scheduled HIDA scan that we had ordered today before since it would not change my management. I met with the patient and family and counseled them regarding the possible options of treatment, and I strongly suggested a laparoscopic, possible open cholecystectomy. We reviewed the operation in detail as well as the risks, benefits, alternatives, and expected outcomes of this operation. After careful consideration of all the risks, benefits, and alternatives, the patient and family appeared to understand those risks and wished to proceed with surgery. For a detailed report of my consultation with patient and family, please refer to my separate consultation note. STATEMENT OF THE INFORMED CONSENT: The patient and family appeared to understand the risks of the operation to include, but not be limited to risk of postoperative pain and scar tissue, possible infection or bleeding requiring other interventions such as opening the wound, placement of drainage catheters, or other operative interventions; possible injury to surrounding to structures including bowel, bladder, bile duct, or blood vessels, or solid organs such as liver, kidney, or pancreas requiring other interventions or procedures; possible leakage of bile from surgical clip sites, suture lines, or worse, from common bile duct injury, causing significant increase in morbidity and mortality and requiring multiple interventions including but not limited to, placement of drainage catheters, imaging studies, as well as operative interventions; possible other source of sepsis such as urinary tract infections or pneumonias, or other sources of potentially life threatening problems such as deep venous thrombus formation causing pulmonary embolism, myocardial arrhythmias and infarctions, and even . After careful consideration of all their options, the patient and family appeared to understand and wished to proceed with surgery. DESCRIPTION OF PROCEDURE: After obtaining informed consent, the patient was brought into the operating room and was placed in a normal supine position, where successful general endotracheal tube anesthesia was performed. The patient 's abdominal skin was prepped and draped, from the nipple line down to the level of the groins, in the usual sterile fashion. Intravenous access was already in place, and appropriately chosen and dosed therapeutic intravenous antimicrobials were were present. We then called a surgical time-out where patient's identification, date of , nature of the operation, allergies, presence of intravenous antimicrobials, presence of needed equipment, and any other concerns were reviewed and agreed upon by all members of the operating room team. We then started the operation by placing a 5-mm skin incision in the right- upper quadrant, subcostal midclavicular line, and introduced a 5-mm [employer] trocar into the peritoneal space, visualizing all the layers of the abdominal wall as we entered. Note that there was no indication of any injury to underlying structures once we entered the peritoneum. We insufflated the abdominal cavity to a maximum pressure of 15 mmHg, again, confirmed lack of any injury to underlying structures prior to visualizing the rest of the abdominal cavity. We could not see the fundus of the gallbladder due to omental presence in the right upper quadrant. There was no evidence of malignancy. No evidence of calcifications or significant issues with adhesions, or other abnormalities. The liver appeared to be healthy without obvious evidence of steatosis. With this information, we went a head and placed the other trocars under direct visualization, after injecting their sites with 0.25% Marcaine with epinephrine , placing a 5-mm trocar in the umbilical midline area, a 5-mm trocar in the right anterior axillary line, and a 12-mm trocar in the midline subxiphoid region. With our instruments in place, we had excellent visualization and access to the right-upper quadrant. We then we grasped the fundus of the gallbladder and pointed up towards the right-upper quadrant. There was significant and thick omental adhesions onto the infundibulum and the body of gallbladder which we took down with judicious use of cautery, as well as meticulous blunt dissection. We then attempted to decompress the gallbladder using a laparoscopic needle and encountered hydrops. Note that the gallbladder did not decompress as much as I had hoped to and this indicated significant swelling and thickening of the wall of the gallbladder. We then attempted to grasp the infundibulum and pull it out in order to expose the critical triangle of Calot. This again proved to be difficult due to the thickness of the gallbladder and the inflammation in the triangle of Calot region. We therefore placed a Ray-Meg inside and pushed the liver up and attempted to take the gallbladder top-down which we accomplished using cautery but after significant amount of effort which is why this operation qualifies for modifier 22. It is also the reason why the blood loss in this operation was significantly more than normal. During the process of taking the gallbladder down, we had placed our usual serosal cuts along the long axis of the gallbladder 1 cm away from its attachment to the liver bed up towards the fundus, and then joined these 2 lines under the infundibulum, taking care not to deliver any energy to underlying structures and primarily using blunt dissection given the amount of thickened fat around the area of the fundus. During the dissection of the gallbladder top-down, we did enter the posterior wall of the gallbladder and immediately encountered more hydrops which was suctioned off using the tip of the suction obstetrics teacher. We also removed several medium-sized stones from the gallbladder and eventually included all of these in the final specimen. This was done using the stone hostess host. Given the amount of swelling in the region of triangle of Calot low, it was not possible to individually identify the cystic duct and the cystic artery. Since I had taken the gallbladder top-down, we only had the gallbladder attached to the portal structures in the region of the cystic duct and for this reason, I decided to transect across this area using one firing of the laparoscopic Endo JENNIFER stapler using one vascular (white) load. Stapler fired well without any technical difficulties and there were clinical data abstractor rows of cisco on the area of the cystic duct region. This area was hemostatic and there was no leakage of bile. There was also no injury to underlying structures. We then delivered the gallbladder out inside of an EndoCatch bag through the 12- mm trocar site with enlarging the fascia and without contaminating the wound. The gallbladder was sent to Pathology for evaluation. Returning to the abdominal cavity, we ensured that there was adequate hemostasis and bile-stasis prior to removal of all of or equipment, including the pneumoperitoneum, and then reapproximating the 12-mm trocar site with 4 [id number] 0 Vicryl sutures, followed by washing the wounds with copious amounts of normal saline, and then reapproximating the skin using interrupted 4- 0 Monocryl sutures. Light dressing was then applied. At the end of the operation, both the sponge count and needle count were reportedly correct x2. The patient tolerated the procedure without any reported complications. Please note that this operation qualifies for modifier 22 given the degree of difficulty of the case as well as complexity of the decision-making. It took significantly more than normal amount of work to accomplish this operation. ESTIMATED BLOOD LOSS: 150 mL BLOOD OR BLOOD PRODUCT TRANSFUSIONS: None to my knowledge. SPECIMENS: 1. Gallbladder COMPLICATIONS: None. DISPOSITION: Recovery area. Disclaimer: Inadvertent spelling and grammatical errors are likely due to EHR/ dictation software use and do not reflect on the quality of delivered patient care. SANDHYA REED M.D. Apr 03, 2017 13:47
[2017-04-03] MEDS ORDERED: HYDROCODONE/APAP (5/325) TAB PO PRN ×2 (14:00)
[2017-04-03] MEDS ORDERED: DOCUSATE SODIUM 100 MG CAP PO PRN (14:00)
[2017-04-03] MEDS ORDERED: HYDROmorphONE 1 MG/ML SYG IV PRN (14:00)
[2017-04-03] MEDS ORDERED: BISACODYL 10 MG SUPP PR PRN (14:00)
[2017-04-03] MEDS ORDERED: NA PHOSPHATE/BIPHOS 133 ML ENEMA PR PRN (14:00)
[2017-04-03] MEDS: HYDROmorphONE 1 MG/ML SYG IV PRN (14:36)
[2017-04-03] MEDS: D5W-0.45 NACL + KCL 20 MEQ 1,000 ML IV SCH ×2 (14:37→23:30)
--- NOTE | 2017-04-03 15:27 | PN ---
Date/Time of Note Date/Time of Note DATE: 04/03/17 TIME: 15:26 Assessment/Plan VTE Prophylaxis VTE Prophylaxis Intervention: LMWH Lines/Catheters IV [facility] Type (from [facility]): Peripheral IV Urinary Cath still in place: No Assessment/Plan Chief Complaint/Hosp Course 1. Severe acute on chronic cholecystitis with gallbladder hydrops. S/P laparoscopic cholecystectomy on 04/03/2017. Continue pain control. Encourage early ambulation. Encourage frequent use of incentive spirometry. 2. Transaminitis. Most probably secondary to #1. Improved other than elevation in alkaline phosphatase. 3. Fluids, electrolytes, and nutrition. Clear liquids. Advancement of diet as per surgery. 4. DVT prophylaxis. Subcutaneous Lovenox. 5. Plan. Continue pain control. Continue post-operative care. Case discussed with Dr. Diez. Problems: Subjective 24 Hr Interval Summary Free Text/Dictation S/P laparoscopic cholecystectomy today. In pain. Exam/Review of Systems Vital Signs Vitals Vital Signs Date Time Temp Pulse Resp B/P Pulse Ox O2 Delivery O2 Flow Rate FiO2 04/03/17 15:21 98.0 82 18 121/72 90 04/03/17 14:02 Room Air 04/03/17 13:22 2.0 Intake and Output 04/02/17 04/02/17 04/03/17 15:00 23:00 07:00 Intake Total 1200 ml 150 ml Output Total 900 ml Balance 300 ml 150 ml Exam General: Adequately build 41 year-old male lying in bed in no apparent distress. HEENT: Normocephalic, atraumatic. Eyes: Anicteric sclerae, conjunctivae clear. ENT: Nasal septum midline, oral mucosa moist. Neck supple, no JVD noticed. Respiratory: Bilaterally clear breath sounds. No use of accessory muscles of respiration. No adventitious breath sounds. Cardiovascular: S1, S2 heard. No murmurs or gallops. Abdomen: Soft. Dressing over laparoscopic incision sites. Diffuse tenderness. Genitourinary: Deferred. Extremities: No cyanosis, no clubbing, no edema. Peripheral pulses palpable. Neurologic: Cranial nerves II through XII grossly intact. The patient is awake, alert, and oriented. Skin: Normal skin turgor. No skin rashes. Results Result Diagram: 04/03/17 0457 04/03/17 0457 Results 24 hrs Laboratory Tests Test 04/03/17 04:57 White Blood Count 8.8 Red Blood Count 4.11 L Hemoglobin 12.6 L Hematocrit 37.2 L Mean Corpuscular Volume 90.5 Mean Corpuscular Hemoglobin 30.7 Mean Corpuscular Hemoglobin Concent 33.9 Red Cell Distribution Width 13.1 Platelet Count 272 Mean Platelet Volume 10.5 H Neutrophils % 70.8 Lymphocytes % 18.6 Monocytes % 7.0 Eosinophils % 2.9 Basophils % 0.5 Nucleated Red Blood Cells % 0.0 Neutrophils # (Manual) 6.2 Lymphocytes # 1.6 Monocytes # 0.6 Eosinophils # 0.3 Basophils # 0.0 Nucleated Red Blood Cells # 0.0 Sodium Level 140 Potassium Level 4.0 Chloride Level 106 Carbon Dioxide Level 25 Anion Gap 13 Blood Urea Nitrogen 13 Creatinine 0.83 Glucose Level 73 Calcium Level 8.8 Phosphorus Level 3.0 Magnesium Level 2.4 Total Bilirubin 1.2 Direct Bilirubin 0.00 Indirect Bilirubin 1.2 H Aspartate Amino Transf (AST/SGOT) 29 Alanine Aminotransferase (ALT/SGPT) 51 Alkaline Phosphatase 147 #H Total Protein 6.8 Albumin 3.4 Globulin 3.40 H Albumin/Globulin Ratio 1.00 Medications Medications Current Medications Ondansetron HCl (Zofran Inj) 4 mg Q6H PRN IV NAUSEA AND/OR VOMITING; Start 04/01 at 06:30 Acetaminophen (Tylenol Tab) 650 mg Q6H PRN PO PAIN LEVEL 1-3 OR FEVER Last administered on 04/02/17 16:37; Admin Dose 650 MG; Start 04/01/17 at 06:30 Docusate Sodium (Colace) 100 mg Q12H PRN PO CONSTIPATION; Start 04/01/17 at 06: 30 Bisacodyl 5 mg 5 mg DAILY PRN PO CONSTIPATION; Start 04/01/17 at 06:30 Piperacillin Sod/ Tazobactam Sod 100 ml @ 200 mls/hr Q8 IVPB Last administered on 04/03/17 14:36; Admin Dose 200 MLS/HR; Start 04/01/17 at 14:00 Potassium Chloride/Dextrose/ Sod Cl (D5-1/2ns + KCl 20 Meq) 1,000 ml @ 100 mls/ hr Q10H IV Last administered on 04/03/17 14:37; Admin Dose 100 MLS/HR; Start at 13:30 Acetaminophen/ Hydrocodone Bitart (Brixey (5/325)) 1 tab Q4H PRN PO PAIN LEVEL 4 -7; Start 04/03/17 at 14:00 Acetaminophen/ Hydrocodone Bitart (Brixey (5/325)) 2 tab Q4H PRN PO PAIN LEVEL 7 -10; Start 04/03/17 at 14:00 Hydromorphone HCl (Dilaudid) 0.5 mg Q2H PRN IV PAIN; Start 04/03/17 at 14:00 Hydromorphone HCl (Dilaudid) 1 mg Q2H PRN IV SEVERE PAIN Last administered on t 14:36; Admin Dose 1 MG; Start 04/03/17 at 14:00 Docusate Sodium (Colace) 100 mg BID PRN PO CONSTIPATION; Start 04/03/17 at 14:00 Bisacodyl (Dulcolax Supp) 10 mg BID PRN [place] CONSTIPATION; Start 04/03/17 at 14:00 Sodium Biphosphate/ Sodium Phosphate (Fleet Enema) 133 ml BID PRN [place] CONSTIPATION; Start 04/03/17 at 14:00 Famotidine (Pepcid Iv) 20 mg DAILY IV ; Start 04/04/17 at 09:00 Enoxaparin Sodium (Lovenox) 40 mg DAILY SC ; Start 04/04/17 at 09:00 RENETTA TENA NP Apr 03, 2017 15:27
[2017-04-04 02:30] VITALS: BP 131/88; RESP 18
[2017-04-04 05:23] LABS: BASOPHILS % 0.2 % (0.0-2.0); EOSINOPHILS % 0.2 % (0.0-7.0); HEMOGLOBIN 11.9 g/dl (14.0-18.0); LYMPHOCYTES # 1.3 10^3/ul (0.8-2.9); LYMPHOCYTES % 12.6 % (15.0-51.0); MEAN CORPUSCULAR HEMOGLOBIN 30.7 pg (29.0-33.0); MEAN CORPUSCULAR VOLUME 90.2 fl (82.0-101.0); MONOCYTE # 0.6 10^3/ul (0.3-0.9); MONOCYTES % 6.4 % (0.0-11.0); NEUTROPHILS % 80.2 % (39.0-77.0); PLATELET COUNT 307 10^3/UL (140-415); RED BLOOD COUNT 3.88 10^6/ul (4.70-6.10)
[2017-04-04 05:40] LABS: INR 1.09; PROTIME 14.1 Sec (12.2-14.2); PT RATIO 1.1
[2017-04-04 05:41] LABS: ALBUMIN 3.4 g/dl (3.3-4.9); BILIRUBIN,INDIRECT 0.6 mg/dl (0-1.1); BILIRUBIN,TOTAL 0.6 mg/dl (0.2-1.3); CALCIUM 8.9 mg/dl (8.4-10.2); CREATININE 0.79 mg/dl (0.61-1.24); MAGNESIUM 2.4 mg/dl (1.7-2.5); PARTIAL THROMBOPLASTIN TIME 33.7 Sec (25.0-35.0); POTASSIUM 4.1 mmol/L (3.5-5.1); TOTAL PROTEIN 6.8 g/dl (6.1-8.1)
[2017-04-04] MEDS: PIPER-TAZO 3.375 GM IV (PMX) 100 ML IVPB SCH (05:50)
[2017-04-04] MEDS: D5W-0.45 NACL + KCL 20 MEQ 1,000 ML IV SCH (05:50)
[2017-04-04 08:03] VITALS: BP 150/94; RESP 18
[2017-04-04] MEDS ORDERED: ENOXAPARIN 40 MG/0.4 ML SYG SC SCH (09:00)
[2017-04-04] MEDS ORDERED: FAMOTIDINE 20 MG INJ IV SCH (09:00)
[2017-04-04] MEDS ORDERED: HYDROCHLOROTHIAZIDE 25 MG TAB PO SCH (10:30)
[2017-04-04] MEDS: HYDROmorphONE 1 MG/ML SYG IV PRN (11:13)
[2017-04-04 11:15] VITALS: BP 160/91; PULSE 73; RESP 18
--- NOTE | 2017-04-04 12:23 | PDOCDIS ---
Discharge Instructions DIAGNOSIS Discharge Diagnosis Cholecystitis. Status post laparoscopic cholecystectomy. CONDITION Patient Condition: Stable HOME CARE INSTRUCTIONS: Diet Instructions: Regular ACTIVITY: Activity Restrictions: Slowly Increase Activity Rest between Activity Avoid heavy lifting Bathing Restrictions: Shower FOLLOW UP/APPOINTMENTS Follow-up Plan Donny Saldana MD Specialty General Surgery Office Address [address] [place] [id number] Office OTHER ORDERS: Other Orders: 1. Regular diet as tolerated. 2. Keep incisions clean and dry. May shower. Avoid tub baths and swimming for 2 weeks. Use mild soap and pat dry the incisions. 3. Take medications as needed for pain. 4. Call the surgeon or go to the nearest ER if you have severe abdominal pain despite pain medications. 5. Call the surgeon or go to the nearest ER if you notice any bleeding or secretions coming out of the incision sites. Also call the surgeon if you notice any blood in stool, if you have persistent fevers, or any other unusual signs or symptoms. 6. Follow-up with the surgeon [Dr. Saldana] in 7 days for incision check. 7. Avoid heavy lifting [more than 25 pounds] for 8 weeks. RENETTA TENA NP Apr 04, 2017 12:23
[2017-04-04] MEDS ORDERED: DOCU-144 PO (12:24)
[2017-04-04] MEDS ORDERED: HYD25 PO (12:24)
[2017-04-04] MEDS ORDERED: HYDR-3498 PO (12:24)
--- NOTE | 2017-04-04 13:19 | DS ---
Date/Time of Note Date/Time of Note DATE: 04/04/17 TIME: 13:17 Discharge Summary Admission/Discharge Info Admit Date/Time Apr 01, 2017 at 04:59 Discharge Date/Time Discharge Diagnosis 1. Severe acute on chronic cholecystitis with gallbladder hydrops. S/P laparoscopic cholecystectomy on 04/03/2017. 2. Essential hypertension (history). Patient Condition: Stable Consults 1. Donny Saldana MD, General Surgery. Procedures CT Scan of the Abdomen and Pelvis IMPRESSION: Distended gallbladder with moderate diffuse wall thickening suggestive of cholecystitis. Right lower lobe atelectasis/consolidation and trace pleural effusion. Mild left basilar atelectasis. Mild bladder wall thickening could suggest cystitis. Clinical correlation is needed. Gallbladder Ultrasound IMPRESSION: Cholelithiasis with mild gallbladder wall thickening. Enlarged liver with fatty infiltration. Pancreas obscured by overlying bowel gas. OPERATION: 1. Laparoscopic cholecystectomy (modifier 22) POSTOPERATIVE DIAGNOSIS: 1. Severe acute on chronic cholecystitis with gallbladder hydrops 2. Cholelithiasis with mild gallbladder wall thickening ([facility] right upper quadrant ultrasound 04/01/2017) 3. Enlarged liver with fatty infiltration ([facility] right upper quadrant ultrasound 04/01/2017) 4. BMI 30.1 Hx of Present Illness This is a 41-year-old male with past medical history of essential hypertension who came to the emergency room with chief complaint of right upper quadrant pain for 1 day. Patient verbalized that the pain started after eating some sausages and red meat. The pain was quantified as 10 out of 10 and nonradiating. The patient denied any fevers. Patient denied any vomiting. However he did verbalize some nausea. The patient denied any shortness of breath or chest pain. In the emergency room, the patient was noticed to have leukocytosis. The patient was also febrile in the emergency room. The patient underwent a gallbladder ultrasound that showed cholelithiasis with mild gallbladder wall thickening and enlarged liver with fatty infiltration. The patient underwent a CT scan of the abdomen and pelvis that showed distended gallbladder with moderate diffuse wall thickening suggestive of cholecystitis. Provided the patient's history of present illness and the diagnostic findings, a clinical decision was made to admit the patient inpatient setting to have him further evaluated. Hospital Course The patient was admitted to inpatient medical surgical floor. The patient was started on empiric antibiotics. He was kept n.p.o. The patient was provided with IV fluids. A general surgery consult was obtained. The patient underwent a laparoscopic cholecystectomy on 04/03/2017 that revealed severe acute on chronic cholecystitis with gallbladder hydrops. Postoperatively, the patient was started on a clear liquid diet and the patient's diet was advanced as tolerated to a regular consistency diet without any significant gastrointestinal symptoms. The patient was able to pass gas. The patient was encouraged on frequent ambulation and frequent use of incentive spirometry. He was cleared by general surgery to be discharged home. Patient has a history of essential hypertension. He was maintained on his home antihypertensives for blood pressure control. He had a stable hospital course. Discharge Instructions 1. Regular diet as tolerated. 2. Keep incisions clean and dry. May shower. Avoid tub baths and swimming for 2 weeks. Use mild soap and pat dry the incisions. 3. Take medications as needed for pain. 4. Call the surgeon or go to the nearest ER if you have severe abdominal pain despite pain medications. 5. Call the surgeon or go to the nearest ER if you notice any bleeding or secretions coming out of the incision sites. Also call the surgeon if you notice any blood in stool, if you have persistent fevers, or any other unusual signs or symptoms. 6. Follow-up with the surgeon [Dr. Saldana] in 7 days for incision check. 7. Avoid heavy lifting [more than 25 pounds] for 8 weeks. The patient verbalized understanding of his discharge instructions. At this time I would like to thank Dr. Saldana for seeing the patient, doing the necessary procedures, and providing clinical recommendations. Case discussed with Dr. Diez. Home Meds Active Scripts Hydrochlorothiazide* (Hydrochlorothiazide*) 25 Mg Tab, 25 MG PO DAILY, #30 TAB Prov:RENETTA TENA NP 04/04/17 Docusate Sodium* (Colace*) 100 Mg Capsule, 100 MG PO BID, #20 CAP Prov:RENETTA TENA NP 04/04/17 Hydrocodone Bit-Acetaminophen (Hydrocodone Bit-APAP) 5-325MG Tablet, 1 TAB PO Q4H Y for PAIN LEVEL 4-7, #20 TAB Prov:RENETTA TENA NP 04/04/17 Discontinued Reported Medications Acetaminophen* (Acetaminophen*) 500 MG Extra Strength Tablet, 500 MG PO Q4H Y for PAIN AND OR ELEVATED TEMP, TAB 04/01/17 Follow-up Plan Follow-up with Dr. Saldana in 1 week. Primary Care Provider Care Physician No Primary Time spent on discharge: > 30 minutes Pending Labs Laboratory Tests Test 04/04/17 04:31 White Blood Count 10.010^3/ul (4.8-10.8) Red Blood Count 3.8810^6/ul (4.70-6.10) Hemoglobin 11.9g/dl (14.0-18.0) Hematocrit 35.0% (42.0-52.0) Mean Corpuscular Volume 90.2fl (82.0-101.0) Mean Corpuscular Hemoglobin 30.7pg (29.0-33.0) Mean Corpuscular Hemoglobin Concent 34.0g/dl (32.0-37.0) Red Cell Distribution Width 13.0% (11.5-14.5) Platelet Count 79120^3/UL (140-415) Mean Platelet Volume 10.0fl (7.4-10.4) Neutrophils % 80.2% (39.0-77.0) Lymphocytes % 12.6% (15.0-51.0) Monocytes % 6.4% (0.0-11.0) Eosinophils % 0.2% (0.0-7.0) Basophils % 0.2% (0.0-2.0) Nucleated Red Blood Cells % 0.0/100WBC (0.0-0.0) Neutrophils # (Manual) 8.010^3/ul (1.7-7.5) Lymphocytes # 1.310^3/ul (0.8-2.9) Monocytes # 0.610^3/ul (0.3-0.9) Eosinophils # 0.010^3/ul (0.0-0.5) Basophils # 0.010^3/ul (0.0-0.1) Nucleated Red Blood Cells # 0.010^3/ul (0.0-0.0) Prothrombin Time 14.1Sec (12.2-14.2) Prothrombin Time Ratio 1.1 INR International Normalized Ratio 1.09 Activated Partial Thromboplast Time 33.7Sec (25.0-35.0) Sodium Level 141mmol/L (135-144) Potassium Level 4.1mmol/L (3.5-5.1) Chloride Level 105mmol/L (97-110) Carbon Dioxide Level 27mmol/L (21-31) Anion Gap 13 (8-16) Blood Urea Nitrogen 9mg/dl (7-20) Creatinine 0.79mg/dl (0.61-1.24) Glucose Level 128mg/dl (70-220) Calcium Level 8.9mg/dl (8.4-10.2) Phosphorus Level 4.0mg/dl (2.5-4.9) Magnesium Level 2.4mg/dl (1.7-2.5) Total Bilirubin 0.6mg/dl (0.2-1.3) Direct Bilirubin 0.00mg/dl (0.00-0.20) Indirect Bilirubin 0.6mg/dl (0-1.1) Aspartate Amino Transf (AST/SGOT) 49IU/L (15-46) Alanine Aminotransferase (ALT/SGPT) 65IU/L (13-69) Alkaline Phosphatase 155IU/L (42-121) B-Type Natriuretic Peptide 211PG/ML (0-125) Total Protein 6.8g/dl (6.1-8.1) Albumin 3.4g/dl (3.3-4.9) Globulin 3.40g/dl (1.3-3.2) Albumin/Globulin Ratio 1.00 RENETTA TENA NP Apr 04, 2017 13:19
--- NOTE | 2017-04-04 15:55 | PN ---
Date/Time of Note Date/Time of Note DATE: 04/04/17 TIME: 15:51 Assessment/Plan Lines/Catheters IV Catheter Type (from Nrsg): Saline Lock Willams in Place (from Nrsg): No Assessment/Plan Assessment/Plan [facility] Progress Note Date of Service: 04/04/17 Today's Impression & Plan: Overall doing well post op without major issues. No major wound problems. With above assessment, I've recommended the following for today: 1. F/u with PCP 2. F/u with us prn Nature of presenting problem: Thank you again for your great care of this very pleasant patient and wonderful family. If there are any questions, please feel free to call me at [phone]. Disclaimer: Inadvertent spelling or grammatical errors are likely due to EHR/ dictation software use and do not reflect on the overall quality of patient care. Updated clinical summary: A very-pleasant 41-year-old gentleman with comorbidity of BMI 30.1 and hypertension, admitted through emergency department at [facility] on 04/01/2017 with symptomatic cholelithiasis and possible early cholecystitis. Comorbidities: 1. Severe acute on chronic cholecystitis with gallbladder hydrops. S/p an otherwise uncomplicated laparoscopic cholecystectomy at [facility] on 04/03/17 with findings of severe acute on chronic cholecystitis with gallbladder hydrops. 2. Cholelithiasis with mild gallbladder wall thickening ([facility] right upper quadrant ultrasound 04/01/2017) 3. Enlarged liver with fatty infiltration ([facility] right upper quadrant ultrasound 04/01/2017) 4. BMI 30.1 Subjective: No major events or complaints overnight; no abd pain and under control with medications; no n/v/d; no sob or cp; + flatus; + BM and normal; + activity Objective: Vitals: See below Exam: GENERAL: On exam, the patient was laying in bed and appeared to be comfortable and in no acute distress. ABDOMEN: Soft, nontender and nondistended. Incision dressings are clean, dry and intact without any evidence of obvious underlying erythema, edema, discharge , or hernia. There are no peritoneal signs or guarding. SKIN: Skin appears to be pink and feels warm to touch. NEUROLOGIC: Patient is awake, alert, and follows commands appropriately. Exam/Review of Systems Vital Signs Vitals Vital Signs Date Time Temp Pulse Resp B/P Pulse Ox O2 Delivery O2 Flow Rate FiO2 04/04/17 11:15 73 18 160/91 98 Room Air 04/04/17 08:03 98.0 04/03/17 13:22 2.0 Intake and Output 04/03/17 04/03/17 04/04/17 15:00 23:00 07:00 Intake Total 2800 ml 980 ml 755 ml Output Total 150 ml 600 ml 2100 ml Balance 2650 ml 380 ml -1345 ml Results Result Diagram: 04/04/17 0431 04/04/17 0431 SANDHYA REED M.D. Apr 04, 2017 15:55
== END 2017-04-04 13:50 | disposition home or self-care (01) | DRG 418 ==
LOC: FTE 20:24 → MS1 04-01 04:59
PROVIDERS: ADMIT Family Medicine; ATTEND Family Medicine
PROC: 0FT44ZZ Resection of Gallbladder, Percutaneous Endoscopic Approach (ICD-10-PCS; principal; 2017-04-03 13:30)
DX: K80.12 Calculus of gallbladder with acute and chronic cholecystitis without obstruction (principal); K82.1 Hydrops of gallbladder; K76.0 Fatty (change of) liver, not elsewhere classified; I10 Essential (primary) hypertension; R16.0 Hepatomegaly, not elsewhere classified; Z72.0 Tobacco use
CPT/HCPCS: 74178; 76705; 80048; 80053; 80061; 81001; 83036; 83690; 83735; 83880; 84100; 84436; 84443; 84479; 85025; 85610; 85730; 88304; C9113; J0690; J1100; J1170; J1650; J1885; J2250; J2270; J2405; J2543; J2710; J2765; J3010; J3480; J7030; J7042; Q9967

== ENCOUNTER → 2017-04-15 | Outpatient (CLI) | payer MEDICAID ==
[~2017-04-15] VITALS: Ht 175.3 cm; Wt 92.3 kg
[~2017-04-15] MED LIST: DOCU-144 PO; HYDR-3498 PO; HYDR25TA6 PO
[2017-04-15 14:26] VITALS: BP 127/93; PULSE 104; RESP 18; Ht 175.3 cm; Wt 92.3 kg
--- NOTE | 2017-04-15 15:10 | PN ---
Date/Time of Note Date/Time of Note DATE: 04/15/17 TIME: 15:05 Assessment/Plan Assessment/Plan Assessment/Plan [facility] Progress Note Date of Service: 04/15/17 Today's Impression & Plan: Overall doing well post op without major issues. No major wound problems. With above assessment, I've recommended the following for today: 1. F/u with PCP 2. F/u with us prn Nature of presenting problem: High complexity Thank you again for your great care of this very pleasant patient and wonderful family. If there are any questions, please feel free to call me at [phone]. Disclaimer: Inadvertent spelling or grammatical errors are likely due to EHR/ dictation software use and do not reflect on the overall quality of patient care. Updated clinical summary: A very-pleasant 41-year-old gentleman with comorbidity of BMI 30.1 and hypertension, admitted through emergency department at [facility] on 04/01/2017 with symptomatic cholelithiasis and possible early cholecystitis. S/p an otherwise uncomplicated laparoscopic cholecystectomy at [facility] on 04/03/17 with findings of severe acute on chronic cholecystitis with gallbladder hydrops. Comorbidities: 1. Severe acute on chronic cholecystitis with gallbladder hydrops. S/p an otherwise uncomplicated laparoscopic cholecystectomy at [facility] on 04/03/17 with findings of severe acute on chronic cholecystitis with gallbladder hydrops. 2. Cholelithiasis with mild gallbladder wall thickening ([facility] right upper quadrant ultrasound 04/01/2017) 3. Enlarged liver with fatty infiltration ([facility] right upper quadrant ultrasound 04/01/2017) 4. BMI 30.1 Subjective: No major events or complaints since discharge; no abd pain and under control with medications; no n/v/d; no sob or cp; + flatus; + BM and normal; + activity Objective: Vitals: See below Exam: GENERAL: On exam, the patient was sitting in a chair and appeared to be comfortable and in no acute distress. ABDOMEN: Soft, nontender and nondistended. Incisions are clean, dry and intact without any evidence of obvious erythema, edema, discharge, or hernia. There are no peritoneal signs or guarding. SKIN: Skin appears to be pink and feels warm to touch. NEUROLOGIC: Patient is awake, alert, and follows commands appropriately. Exam/Review of Systems Vital Signs Vitals Vital Signs Date Time Temp Pulse Resp B/P Pulse Ox O2 Delivery O2 Flow Rate FiO2 04/15/17 14:26 98.1 104 18 127/93 97 Room Air SANDHYA REED M.D. Apr 15, 2017 15:10
== END | disposition home or self-care (01) ==
LOC: HPC 14:20
PROVIDERS: ATTEND Transplant Surgery
DX: K80.12 Calculus of gallbladder with acute and chronic cholecystitis without obstruction (principal); R16.0 Hepatomegaly, not elsewhere classified